=== PATIENT | female | born 1985 | race American Indian/Alaskan Native ===

== ENCOUNTER 2018-07-02 15:52 | Emergency (ER) | payer OTHER ==
--- NOTE | 2018-07-02 16:40 | Emergency Department Report ---
Chief Complaint: Eye Problems Stated Complaint: LFT EYE PAIN Time Seen by Provider: 07/02/18 16:38 - HPI History of Present Illness: left eye pain that began today states she sees something in the eye tried to get it out with a q-tip no drainage from the eye, no crusting, no eyelash matting PMhx nephrolithiasis occ drinker + tobacco use no drug use MSE screening note: Focused history and physical exam performed. ED Disposition for MSE Condition: Stable
[2018-07-02 16:41] VITALS: BP 132/76
[2018-07-02] MEDS ORDERED: TETRACAINE 0.5% OU PRN (19:30)
[2018-07-02] MEDS ORDERED: FUL-GLO OP ONE ×2 (19:30→19:31)
[2018-07-02] MEDS ORDERED: BSS OU ONE (19:30)
[2018-07-02] MEDS ORDERED: BSS ONE (19:31)
[2018-07-02] MEDS ORDERED: TETRACAINE 0.5% ONE (19:31)
--- NOTE | 2018-07-02 20:07 | Emergency Department Report ---
Eye Injury/Foreign Body - HPI Eye Location: Left Severity: Mild Eye Symptoms: Eye Pain: No, Blurred Vision: No, Eye Redness: Yes (left), Grinding/Hammering Metal: Yes (left), Contact Lens Use: No, Recalls Injury: No, Photophobia: No Other History: This is a 32-year-old -[place] female who presents to the emergency room with redness and pain to left eye for 1 day. Patient reports a grind against sensation to left eye. Patient states she looked in her left eye yesterday she noticed something near high rinse and attempt to remove with a Q- tip with no success. Patient also reported blurry vision with sunlight. Patient reports blurry vision with sun contact. ED Review of Systems ROS: Stated complaint: LFT EYE PAIN Other details as noted in HPI Constitutional: denies: chills, fever Eyes: eye pain (left). denies: eye discharge, vision change ENT: denies: ear pain, throat pain Respiratory: denies: cough, shortness of breath, wheezing Cardiovascular: denies: chest pain, palpitations Gastrointestinal: denies: abdominal pain, nausea, diarrhea Skin: denies: rash, lesions Neurological: denies: headache, weakness, paresthesias Psychiatric: denies: anxiety, depression ED Past Medical Hx - Past Medical History Previous Medical History?: No - Surgical History Past Surgical History?: No - Social History Smoking Status: Light Tobacco Smoker Substance Use Type: Alcohol - Medications Home Medications: Home Medications Medication Instructions Recorded Confirmed Last Taken Type Azithromycin(Nf)1% Ophth Soln 1 drops OS QDAY #1 bottle 07/02/18 Unknown Rx [Azasite 1% Ophth Soln] Eye Injury Exam - Exam General: Vital signs noted. No distress. Alert and acting appropriately. - Visual Acuity Left Vision Acuity Degree: 20/30 Eye Exam: Left Injection, Left Eye Foreign Body (there appears to be a foreign object at 9 o'clock on iris), Left Fluorescein Uptake (foreign body on iris at 9 o'clock, no cells are sign of corneal abrasion), Both EOMI, Neither Chemosis, Neither Abnormal Pupil, Neither Lid Foreign Body, Neither Mucous Discharge, Neither Purulent Discharge, Neither Fluorescein Uptake (slit lamp), Neither Cell/Flare (slit lamp), Neither Corneal Edema, Neither Photophobia Right Vision Acuity Degree: 20/25 Bilateral Vision Acuity Degree: 20/25 ED Course Vital Signs 07/02/18 16:38 Temperature 98.8 F Pulse Rate 94 H Respiratory 16 Rate Blood Pressure 132/76 O2 Sat by Pulse 100 Oximetry ED Medical Decision Making - Medical Decision Making Patient is stable and was examined by me. Vitals normal. Left eye examination with Wood's light there appears to be a foreign body and 9:00 on iris of the left eye. Attempt to remove the foreign body with irrigation and a Q-tip and unsuccessful. The patient will be treated for conjunctivitis with azithromycin ophthalmic drops. Referral to ophthalmology for follow-up. Discussed plan with patient and she agreed with plan. Discharged home in stable condition. Follow up with PCP in 24-72 hours. Critical care attestation.: If time is entered above; I have spent that time in minutes in the direct care of this critically ill patient, excluding procedure time. ED Disposition Clinical Impression: Pain, eye, left Eye foreign body Qualifiers: Encounter type: initial encounter Laterality: left Qualified Code(s): T15.92XA - Foreign body on external eye, part unspecified, left eye, initial encounter Conjunctivitis Qualifiers: Conjunctivitis type: acute Acute conjunctivitis type: bacterial Laterality: left Qualified Code(s): H10.32 - Unspecified acute conjunctivitis, left eye Disposition: - TO HOME OR SELFCARE Is pt being admited?: No Does the pt Need Aspirin: No Condition: Stable Instructions: Eye Foreign Body (ED), Eye Pain (ED) Additional Instructions: Follow-up with ophthalmology within the next 24 hours. I have provided document coordinator for you to follow-up with in a referral section below. Prescriptions: Azithromycin(Nf)1% Ophth Soln [Azasite 1% Ophth Soln] 1 drops OS QDAY #1 bottle Referrals: TIMOTEO DOBBINS MD [Primary Care Provider] - 3-5 Days [facility] [Provider Group] - 3-5 Days [facility], [facility] [Provider Group] - 3-5 Days KAVEH PEREZ MD [Staff Physician] - 3-5 Days Time of Disposition: 20:34
== END 2018-07-02 20:40 | disposition home or self-care (01) ==
LOC: ED 15:52
DX: T15.92XA Foreign body on external eye, part unspecified, left eye, initial encounter (principal); F17.200 Nicotine dependence, unspecified, uncomplicated; Z88.1 Allergy status to other antibiotic agents; X58.XXXA Exposure to other specified factors, initial encounter; Y93.89 Activity, other specified; Y92.89 Other specified places as the place of occurrence of the external cause; Y99.8 Other external cause status
CPT/HCPCS: 99283

== ENCOUNTER 2019-01-30 10:20 | Emergency (ER) | payer OTHER ==
[2019-01-30 10:28] VITALS: BP 139/51
--- NOTE | 2019-01-30 12:02 | Emergency Department Report ---
ED Upper Extremity Inj HPI - General Chief Complaint: Extremity Injury, Upper Stated Complaint: LT THUMB INJURY Time Seen by Provider: 01/30/19 11:19 Source: patient Mode of arrival: Ambulatory Limitations: No Limitations - History of Present Illness Initial Comments: 33-year-old female presents to ED with left thumb injury. Patient states she was at work last night and discharged her hands out in and attempt to break her fall, however she injured her left thumb. She reports mild swelling and pain with range of motion of the thumb. MD Complaint: Injury to:: left, finger -: Last night Other Extremity Injury: Fingers: Left (thumb) Other Injuries: none Place: work Improves With: immobilization Worsens With: movement of extremity Context: fall Associated Symptoms: denies other symptoms - Related Data Previous Rx's Medication Instructions Recorded Last Taken Type Azithromycin(Nf)1% Ophth Soln 1 drops OS QDAY #1 bottle 07/02/18 Unknown Rx [Azasite 1% Ophth Soln] Naproxen [Naprosyn] 500 mg PO BID #20 tablet 01/30/19 Unknown Rx Allergies Allergy/AdvReac Type Severity Reaction Status Date / Time amoxicillin Allergy Bleeding Verified 07/02/18 15:54 ED Review of Systems ROS: Stated complaint: LT THUMB INJURY Other details as noted in HPI Comment: All other systems reviewed and negative Musculoskeletal: as per HPI Neurological: denies: numbness, paresthesias ED Past Medical Hx - Past Medical History Previous Medical History?: No - Surgical History Past Surgical History?: No - Social History Smoking Status: Current Every Day Smoker Substance Use Type: None - Medications Home Medications: Home Medications Medication Instructions Recorded Confirmed Last Taken Type Azithromycin(Nf)1% Ophth Soln 1 drops OS QDAY #1 bottle 07/02/18 Unknown Rx [Azasite 1% Ophth Soln] Naproxen [Naprosyn] 500 mg PO BID #20 tablet 01/30/19 Unknown Rx ED Physical Exam - General Limitations: No Limitations General appearance: alert, in no apparent distress - Head Head exam: Present: atraumatic, normocephalic - Eye Eye exam: Present: normal appearance - ENT ENT exam: Present: mucous membranes moist - Neck Neck exam: Present: normal inspection - Respiratory Respiratory exam: Present: normal lung sounds bilaterally. Absent: respiratory distress - Cardiovascular Cardiovascular Exam: Present: regular rate, normal rhythm - GI/Abdominal GI/Abdominal exam: Absent: distended - Extremities Exam Extremities exam: Present: other (tenderness, minimal swelling to left thumb; pain with flexion and extension of left thumb; no bruising present) - Neurological Exam Neurological exam: Present: alert, oriented X3. Absent: motor sensory deficit - Psychiatric Psychiatric exam: Present: normal affect, normal mood - Skin Skin exam: Present: warm, dry, intact, normal color ED Course Vital Signs 01/30/19 10:27 Temperature 97.9 F Pulse Rate 73 Respiratory 16 Rate Blood Pressure 139/51 O2 Sat by Pulse 100 Oximetry ED Medical Decision Making - Radiology Data Radiology results: report reviewed, image reviewed - Medical Decision Making 33-year-old female with left thumb injury at work. X-rays are negative. Patient placed in thumb spica splint and advised follow-up with orthopedic. - Differential Diagnosis fracture, sprain Critical care attestation.: If time is entered above; I have spent that time in minutes in the direct care of this critically ill patient, excluding procedure time. ED Disposition Clinical Impression: Left thumb sprain Disposition: TO HOME OR SELFCARE Is pt being admited?: No Condition: Stable Instructions: Finger Sprain (ED) Prescriptions: Naproxen [Naprosyn] 500 mg PO BID #20 tablet Referrals: GOKUL VIDAL MD [Staff Physician] - 3-5 Days Forms: Work/School Release Form(ED) Time of Disposition: 12:13
--- NOTE | 2019-01-30 12:07 | XRay Report ---
Left thumb-3 views INDICATION: left thumb pain. Fall last evening with generalized pain COMPARISON: None. IMPRESSION: Mild swelling about the thumb especially over the metacarpal but no displaced fracture i dentified. Normal alignment. No significant DJD. Signer Name: Matt Villatoro MD Signed: 01/30/2019 12:03 PM Workstation Name: [id number]
== END 2019-01-30 12:42 | disposition home or self-care (01) ==
LOC: ED 10:20
DX: S63.602A Unspecified sprain of left thumb, initial encounter (principal); F17.200 Nicotine dependence, unspecified, uncomplicated; Z88.1 Allergy status to other antibiotic agents; Z79.899 Other long term (current) drug therapy; W19.XXXA Unspecified fall, initial encounter; Y93.89 Activity, other specified; Y92.69 Other specified industrial and construction area as the place of occurrence of the external cause; Y99.8 Other external cause status